=== PATIENT | male | born 1970 | race Caucasian/White ===

== ENCOUNTER 2019-04-18 17:08 | Inpatient (IN) | payer OTHER ==
[~2019-04-18 17:08] MED LIST: Iopamidol 370 76% 100 ML VIAL ONE
[2019-04-18 18:37] LABS: #Basophils 0.1 thou/uL (0.0-0.2); #Lymphocytes 1.2 thou/uL (1.20-3.40); #Monocytes 0.6 thou/uL (0.11-0.59); #Neutrophils 8.4 thou/uL (1.40-6.50); %Basophils 0.7 % (0.0-1.0); %Eosinophils 0.1 % (0.0-10.0); %Monocytes 5.7 % (0.0-10.0); %Neutrophils 81.5 % (42.0-75.0); Hemoglobin 13.6 g/dL (14.0-18.0); Mean Corpuscular HGB CONC 35.4 g/dL (32.0-36.0); Mean Corpuscular Hemoglobin 31.7 pg (27.0-31.0); Mean Corpuscular Volume 89.6 fL (78.0-98.0); Mean Platelet Volume 5.8 fL (7.4-10.4); Platelet Count 190 thou/uL (130-400); RBC Distribution Width 13.1 % (11.5-14.5); White Blood Cell (WBC) Count 10.3 thou/uL (4.8-10.8)
[2019-04-18 18:48] LABS: ALT (SGPT) 12 U/L (8-55); AST (SGOT) 15 U/L (5-34); Albumin 3.7 g/dL (3.5-5.0); Alkaline Phosphatase 62 U/L (40-150); Anion Gap 13 mmol/L (10-20); BUN (Urea Nitrogen) 17 mg/dL (8.9-20.6); Bilirubin, Total 2.1 mg/dL (0.2-1.2); Calc. Creatinine Clearance 0 mL/min (70-130); Calcium 8.5 mg/dL (7.8-10.44); Carbon Dioxide 25 mmol/L (22-29); Chloride 103 mmol/L (98-107); Estimated GFR-MDRD 61; Glucose 106 mg/dL (70-105); Lipase 13 U/L (8-78); Potassium 3.4 mmol/L (3.5-5.1); Protein, Total 6.7 g/dL (6.0-8.3); Sodium 138 mmol/L (136-145)
[2019-04-18 19:07] LABS: CKMB 1.3 ng/mL (0-6.6)
[2019-04-18] MEDS ORDERED: Piperacillin/Tazobactam 3.375 GM VIAL ONE (19:14)
[2019-04-18] MEDS ORDERED: Sodium Chloride 0.9% 100 ML ONE ×2 (19:14→19:53)
[2019-04-18] MEDS ORDERED: Aspirin Chewable 81 MG TAB ONE (19:14)
[2019-04-18] MEDS ORDERED: Piperacillin/Tazobactam 4.5 GM VIAL ONE (19:15)
--- NOTE | 2019-04-18 19:44 | CT ---
CT Aortic Dissection Protocol including the chest, abdomen and pelvis performed with intravenous cont rast enhancement and 3-D reconstructions HISTORY: Shortness of breath. Development of fever today. COMPARISON: None. FINDINGS: The lungs show some patchy pneumonitis type changes within the lingula and lower lobes. The re is no evidence of pleural effusion or pulmonary nodules. There is good pulmonary artery opacification obtained with no CT evidence for pulmonary embolus. Slightly prominent but small subcentimeter mediastinal lymph nodes are probably reactive in nature. The thoracic aorta is normal in caliber without evidence of dissection. CT angiogram of abdomen performed with intravenous contrast enhancement with 3-D reconstructions the liver shows no focal abnormalities it is 18 cm in length. The spleen measures 13.1 cm. Pancreas and gallbladder regions are unremarkable. Right and left adrenal glands and right and left kidneys are normal in appearance. No significant per iaortic or mesenteric adenopathy. Angiographic portion of the study shows a normal caliber aorta. The celiac and superior mesenteric ar teries are normal in appearance. There is a patent REANNA. There is no evidence of renal artery stenosis. There are no signs of dissection. CT angiogram of pelvis performed with intravenous contrast enhancement with 3-D reconstructions: The appendix is normal. There is no evidence of adenopathy or mass. No significant bony findings. IMPRESSION: 1. Patchy pneumonitis changes involving both lower lobes slightly more confluent infiltrate within th e lingula. 2. No evidence of aortic aneurysm or dissection. 3. Borderline spleen size.
[2019-04-19] MEDS ORDERED: Piperacillin/Tazobactam 4.5 GM in Sodium Chloride 0.9% 100 ML IVPB SCH (09:00)
[2019-04-19] MEDS ORDERED: HYDROcodone/Acetaminophen 5/325 mg Tablet PO PRN (09:49)
[2019-04-19] MEDS ORDERED: Loperamide HCl 2 MG CAP PO PRN (09:49)
[2019-04-19] MEDS ORDERED: Acetaminophen 325 MG TAB PO PRN (09:49)
[2019-04-19] MEDS ORDERED: Bisacodyl 10 MG SUPP PR PRN (09:49)
[2019-04-19] MEDS ORDERED: Senokot S 8.6-50 MG TAB PO PRN (09:49)
[2019-04-19] MEDS ORDERED: Ibuprofen 200 MG TAB PO PRN (09:49)
[2019-04-19] MEDS ORDERED: Cepastat Lozenges 1 LOZ PO PRN (09:49)
[2019-04-19] MEDS ORDERED: Loratadine 10 MG TAB PO PRN (09:49)
[2019-04-19] MEDS ORDERED: hydrALAZINE 20 MG/ML VIAL SLOW IVP PRN (09:49)
[2019-04-19] MEDS ORDERED: Sodium Chloride 0.65% Nasal 44 ML BOT EA NARE PRN (09:49)
[2019-04-19] MEDS ORDERED: Ondansetron ODT 4 MG TAB PO PRN (09:49)
[2019-04-19] MEDS ORDERED: Artificial Tears 18 DROP/0.9 ML EA EYE PRN (09:49)
[2019-04-19] MEDS ORDERED: Ondansetron PF 4 MG/2 ML Vial IVP PRN (09:49)
[2019-04-19] MEDS ORDERED: Diabetic Tussin 200 MG/10 ML UDCUP PO PRN (09:49)
[2019-04-19] MEDS ORDERED: Calcium Carbonate 500 MG ChewTAB PO PRN (09:49)
[2019-04-19 09:51] LABS: Troponin I 0.072 ng/mL (< 0.028)
[2019-04-19] MEDS ORDERED: Potassium Chloride 20 MEQ TAB PO SCH (10:00)
[2019-04-19] MEDS ORDERED: Valsartan 80 MG TAB PO SCH (10:00)
[2019-04-19] MEDS ORDERED: Hydrochlorothiazide 25 MG TAB PO SCH (10:00)
[2019-04-19 10:32] LABS: Anion Gap 13 mmol/L (10-20); BUN (Urea Nitrogen) 15 mg/dL (8.9-20.6); Calc. Creatinine Clearance 140 mL/min (70-130); Calcium 8.9 mg/dL (7.8-10.44); Carbon Dioxide 26 mmol/L (22-29); Chloride 102 mmol/L (98-107); Estimated GFR-MDRD 79; Glucose 84 mg/dL (70-105); Potassium 3.3 mmol/L (3.5-5.1); Sodium 138 mmol/L (136-145)
[2019-04-19 10:45] LABS: #Eosinphils 0.1 thou/uL (0.0-0.7); #Lymphocytes 1.3 thou/uL (1.20-3.40); #Monocytes 0.7 thou/uL (0.11-0.59); #Neutrophils 7.9 thou/uL (1.40-6.50); %Basophils 0.1 % (0.0-1.0); %Eosinophils 0.6 % (0.0-10.0); %Lymphocytes 13.3 % (21.0-51.0); %Monocytes 7.1 % (0.0-10.0); %Neutrophils 78.9 % (42.0-75.0); Hemoglobin 13.2 g/dL (14.0-18.0); Mean Corpuscular HGB CONC 33.5 g/dL (32.0-36.0); Mean Corpuscular Hemoglobin 31.7 pg (27.0-31.0); Mean Corpuscular Volume 94.7 fL (78.0-98.0); Mean Platelet Volume 7.3 fL (7.4-10.4); Platelet Count 177 thou/uL (130-400); RBC Distribution Width 13.8 % (11.5-14.5); Red Blood Cell (RBC) Count 4.17 mill/uL (4.70-6.10)
[2019-04-19] MEDS: cefTRIAXone\\ROCEPHIN 1 GM in Sodium Chloride 0.9% 100 ML IVPB SCH (10:55)
[2019-04-19 11:59] LABS: Bilirubin Negative (Negative); Blood, Urine Negative (Negative); Clarity CLEAR (Clear); Glucose, Urine (Dipstick) Negative (Negative); Leukocyte Negative (Negative); Nitrite Negative (Negative); Protein, Urine (Dipstick) 30 mg/dL (Neg-Trace); Specific Gravity, Urine 1.027 (1.002-1.036)
[2019-04-19 12:02] LABS: Bacteria/HPF None Seen HPF (None Seen); Hyaline Casts/LPF 0-3 HYALINE CAST LPF (0-3 Hyaline); Pathc Cast-AUWi Flag 0.13 (0-2.49); RBC/HPF 0-3 HPF (0-3); Squamous Epithelial None Seen HPF (0-3); WBC/HPF 0-3 HPF (0-3)
[2019-04-19 12:13] LABS: Legionella Urinary Ag Negative (Negative)
[2019-04-19 12:14] LABS: Strep pneumo Urine Ag NEGATIVE (NEGATIVE)
--- NOTE | 2019-04-19 14:31 | HP ---
PRIMARY CARE PHYSICIAN: Dr. Rosendo Gomez. REASON FOR ADMISSION: Sepsis and pneumonia. HISTORY OF PRESENT ILLNESS: A 48-year-old male with no significant medical history other than hypertension, dyslipidemia, and sleep apnea, who presented to emergency room at [facility] ER with complaint of fever, chills, and increasing shortness of breath. The patient was having symptoms for last three days, but his symptoms gotten worse yesterday. The patient's only recent history of travel to [place] about three weeks ago. He did not have any chronic lung problem. He had one time pneumonia in the past. He denies any recent upper respiratory infection. He has mild shortness of breath. He has mild sore throat. At home, he was having cough productive of a scant amount of sputum and yesterday, he was having blood-tinged sputum. He denies any pleurisy. He denies any recent sick exposure or flu-like illness. In the emergency room, the patient had initially chest x-ray and subsequently CT chest, which showed infiltration. The patient was diagnosed with pneumonia and he was meeting sepsis criteria in the emergency room. The patient was admitted to telemetry floor. REVIEW OF SYSTEMS: CONSTITUTIONAL: Negative for weight loss or gain, ability to conduct usual activities. SKIN: Negative for rash, itching. EYES: Negative for double vision, pain. ENT/MOUTH: Negative for nose bleeding, neck stiffness, pain, tenderness. CARDIOVASCULAR: Negative for palpitations, dyspnea on exertion, orthopnea. RESPIRATORY: Negative for shortness of breath, wheezing, cough, hemoptysis, fever or night sweats. GASTROINTESTINAL: Negative for poor appetite, abdominal pain, heartburn, nausea, vomiting, constipation, or diarrhea. GENITOURINARY: Negative for urgency, frequency, dysuria, nocturia. MUSCULOSKELETAL: Negative for pain, swelling. NEUROLOGIC/PSYCHIATRIC: Negative for anxiety, depression. ALLERGY/IMMUNOLOGIC: Negative for skin rash, bleeding tendency. Please see my HPI for pertinent positives and negatives. All other review of systems reviewed and negative except as mentioned in HPI. PAST MEDICAL HISTORY: Hypertension, dyslipidemia, and obstructive sleep apnea. PAST SURGICAL HISTORY: Reviewed and negative. PAST PSYCHIATRIC HISTORY: Reviewed and negative. SOCIAL HISTORY: The patient is former smoker. He currently denies any smoking. He drinks alcohol socially. He denies any other illicit drug abuse. He works in [place]. FAMILY HISTORY: No strong family history of premature coronary artery disease, stroke, or cancer. ALLERGIES: NO KNOWN DRUG ALLERGIES. CURRENT HOME MEDICATION: Valsartan with hydrochlorothiazide 320/25 one tablet p.o. daily. EMERGENCY ROOM COURSE: The patient was given vancomycin and Zosyn as well as IV fluid. PHYSICAL EXAMINATION: VITAL SIGNS: On arrival, blood pressure 142/92, pulse 112, respiratory rate 22, temperature 101.4, and saturation 94% on room air. Weight 110 kg. GENERAL: The patient is currently alert, awake, and in no obvious acute distress. HEENT: Head; normocephalic and atraumatic. Eyes; pupils are round and reactive to light. Extraocular muscles are intact. ENT; oropharynx within normal limits. Moist mucous membranes. No oral lesion. No pharyngeal erythema. No exudate. NECK: Supple. No JVD. No thyromegaly. No carotid bruit. No jugular venous distention. CARDIAC: Grossly clear to auscultation. Few coarse rales noted. CARDIAC: S1 and S2 regular. No murmur. No gallop. No rub. ABDOMEN: Soft. Bowel sounds are present. Nontender. Nondistended. No organomegaly. No mass. No suprapubic tenderness. BACK: Unremarkable. No CVA tenderness. EXTREMITIES: Upper extremities; passive movement of all joints are normal. Lower extremities, no edema. No calf tenderness. Good distal pulsation. SKIN: No skin rash. HEMATOLOGIC: No lymphadenopathy. NEUROLOGIC: Nonfocal examination. SIGNIFICANT LABORATORY DATA: EKG showing normal sinus rhythm, left atrial enlargement, LVH, and nonspecific ST-T changes. CT dissection protocol done in the emergency room showed patchy pneumonitis involving both lower lobe as well as in lingula. Chest x-ray done a couple of days ago, which did not show any acute process other than cardiomegaly. CBC; WBC 10.3, hemoglobin 13.6, and platelets are 190. BMP; sodium 138, potassium 3.4, chloride 103, carbon dioxide 25, BUN 17, creatinine 1.26, glucose 106, calcium 8.5. Lactic acid 1.1. LFT; bilirubin 2.1, AST 15, ALT 12, alkaline phosphatase 62, albumin 3.7, lipase 13, CK-MB 1.3. Troponin 0.071 and then 0.072. Urinalysis, normal. Urine Legionella pneumophila antigen and streptococcal pneumoniae antigen negative. Blood culture obtained in the emergency room. ASSESSMENT AND PLAN: 1. Sepsis due to bibasilar and lingular pneumonia. 2. Community-acquired bacterial pneumonia. 3. Demand ischemia of myocardium due to sepsis. 4. Hypokalemia due to hydrochlorothiazide. 5. Hypertension, uncontrolled. 6. Obesity with BMI of 31. 7. Obstructive sleep apnea. PLAN: 1. Admission to telemetry floor. Discontinue IV fluid after finishing current bag of IV fluid. Continue Rocephin 1 g q.24 hour and Levaquin 750 mg IV daily. Mucinex 600 mg twice daily. Resume the patient's home blood pressure medication. Replace potassium. 2. Deep venous thrombosis prophylaxis with SCD boots. GI prophylaxis with Pepcid 20 mg p.o. b.i.d., symptomatic treatment with DuoNeb and Mucinex as needed. CODE STATUS: The patient is full code. DISPOSITION PLAN: Based on clinical course, we are expecting the patient's stay in hospital for more than 2 midnights. Plan of care discussed with the patient in detail. Job ID: [id number]
[2019-04-19] MEDS ORDERED: Amlodipine 5 MG TAB PO SCH (18:15)
[2019-04-19] MEDS: guaiFENesin ER 600 MG TAB PO SCH (21:17)
[2019-04-19] MEDS: Famotidine 20 MG TAB PO SCH (21:17)
[2019-04-19 21:28] LABS: Troponin I 0.042 ng/mL (< 0.028)
[2019-04-19] MEDS: Zolpidem Tartrate 5 MG TAB PO PRN (23:54)
[2019-04-20 06:34] LABS: #Eosinphils 0.1 thou/uL (0.0-0.7); #Lymphocytes 1.3 thou/uL (1.20-3.40); #Monocytes 0.6 thou/uL (0.11-0.59); #Neutrophils 7.4 thou/uL (1.40-6.50); %Basophils 0.4 % (0.0-1.0); %Eosinophils 0.8 % (0.0-10.0); %Lymphocytes 14.2 % (21.0-51.0); %Monocytes 6.5 % (0.0-10.0); %Neutrophils 78.1 % (42.0-75.0); Mean Corpuscular HGB CONC 33.7 g/dL (32.0-36.0); Mean Corpuscular Hemoglobin 31.3 pg (27.0-31.0); Mean Platelet Volume 6.8 fL (7.4-10.4); Platelet Count 220 thou/uL (130-400); RBC Distribution Width 13.5 % (11.5-14.5); Red Blood Cell (RBC) Count 4.46 mill/uL (4.70-6.10); White Blood Cell (WBC) Count 9.5 thou/uL (4.8-10.8)
[2019-04-20 06:51] LABS: ALT (SGPT) 9 U/L (8-55); AST (SGOT) 16 U/L (5-34); Albumin 3.7 g/dL (3.5-5.0); Alkaline Phosphatase 72 U/L (40-150); Anion Gap 17 mmol/L (10-20); BUN (Urea Nitrogen) 12 mg/dL (8.9-20.6); Bilirubin, Total 1.6 mg/dL (0.2-1.2); Calc. Creatinine Clearance 149 mL/min (70-130); Carbon Dioxide 21 mmol/L (22-29); Chloride 99 mmol/L (98-107); Estimated GFR-MDRD 85; Globulin 3.4 g/dL (2.4-3.5); Glucose 104 mg/dL (70-105); Potassium 3.5 mmol/L (3.5-5.1); Protein, Total 7.1 g/dL (6.0-8.3); Sodium 133 mmol/L (136-145)
[2019-04-20] MEDS: Potassium Chloride 20 MEQ TAB PO SCH ×2 (08:08→16:44)
[2019-04-20] MEDS: Famotidine 20 MG TAB PO SCH ×2 (08:09→21:25)
[2019-04-20] MEDS: guaiFENesin ER 600 MG TAB PO SCH ×2 (08:09→21:25)
[2019-04-20] MEDS: Hydrochlorothiazide 25 MG TAB PO SCH (08:09)
[2019-04-20] MEDS: Valsartan 80 MG TAB PO SCH (08:09)
[2019-04-20] MEDS ORDERED: Amlodipine 5 MG TAB PO SCH (09:00)
--- NOTE | 2019-04-20 11:52 | PDOC.PN ---
- Subjective Encounter Start Date: 04/20/19 Encounter Start Time: 07:30 -: old records requested/rev Patient seen and examined. No new complaints. No overnight events he feels much better, slept well, no fever, less cough - Objective Resuscitation Status - Order Detail: 04/19/19 09:45 Resuscitation Status Routine Resuscitation Status: FULL: Full Resuscitation MAR Reviewed: Yes Vital Signs & Weight: Vital Signs (12 hours) Temp Pulse Resp BP BP Pulse Ox 04/20/19 08:09 97 04/20/19 08:05 96 04/20/19 08:00 98.5 F 97 18 159/107 H 96 04/20/19 03:00 98.0 F 96 16 157/98 H 96 Weight Weight 236 lb 4.8 oz I&O: 04/19/19 04/20/19 04/21/19 06:59 06:59 06:59 Intake Total 2039 450 Balance 2039 450 Result Diagrams: 04/20/19 05:27 04/20/19 05:27 EKG Reviewed by me: Yes Phys Exam - Physical Examination Constitutional: NAD HEENT: PERRLA, moist MMs, sclera anicteric Neck: no JVD, supple Respiratory: no wheezing, no rales, no rhonchi Cardiovascular: RRR, no significant murmur, no rub Gastrointestinal: soft, non-tender, no distention, positive bowel sounds Musculoskeletal: no edema, pulses present Neurological: non-focal, normal sensation, moves all 4 limbs Lymphatic: no nodes Psychiatric: normal affect, A&O x 3 Skin: no rash, normal turgor Dx/Plan (1) Sepsis Code(s): A41.9 - SEPSIS, UNSPECIFIED ORGANISM Status: Acute (2) Demand ischemia Code(s): I24.8 - OTHER FORMS OF ACUTE ISCHEMIC HEART DISEASE Status: Acute (3) Community acquired bacterial pneumonia Code(s): J15.9 - UNSPECIFIED BACTERIAL PNEUMONIA Status: Acute (4) Obesity (BMI 30.0-34.9) Code(s): E66.9 - OBESITY, UNSPECIFIED Status: Chronic (5) Hypertension Code(s): I10 - ESSENTIAL (PRIMARY) HYPERTENSION Status: Acute (6) YASIR on CPAP Code(s): G47.33 - OBSTRUCTIVE SLEEP APNEA (ADULT) (PEDIATRIC); Z99.89 - DEPENDENCE ON OTHER ENABLING MACHINES AND DEVICES Status: Acute (7) Hypokalemia Code(s): E87.6 - HYPOKALEMIA Status: Acute - Plan cont current plan of care, continue antibiotics * DC tele * transfer to medical * continue rocephin and levaquin * medication reviewed as below * symptomatic treatment. Review of Systems - Review of Systems ENT: negative: Ear Pain, Ear Discharge, Nose Pain, Nose Discharge, Nose Congestion, Mouth Pain, Mouth Swelling, Throat Pain, Throat Swelling, Other Respiratory: Cough. negative: Dry, Shortness of Breath, Hemoptysis, SOB with Excertion, Pleuritic Pain, Sputum, Wheezing Cardiovascular: negative: chest pain, palpitations, orthopnea, paroxysmal nocturnal dyspnea, edema, light headedness, other Gastrointestinal: negative: Nausea, Vomiting, Abdominal Pain, Diarrhea, Constipation, Melena, Hematochezia, Other Genitourinary: negative: Dysuria, Frequency, Incontinence, Hematuria, Retention , Other Musculoskeletal: negative: Neck Pain, Shoulder Pain, Arm Pain, Back Pain, Hand Pain, Leg Pain, Foot Pain, Other Skin: negative: Rash, Lesions, Emerson, Bruising, Other - Medications/Allergies Allergies/Adverse Reactions: Allergies Allergy/AdvReac Type Severity Reaction Status Date / Time No Allergy Information Allergy Verified 04/19/19 11:06 Available Medications: Current Medications Acetaminophen (Tylenol) 650 mg PO Q4H PRN PRN Reason: Headache/Fever/Mild Pain (1-3) Hydrocodone Bitart/Acetaminophen (Harrison 5/325) 1 tab PO Q4H PRN PRN Reason: Moderate Pain (4-6) Albuterol/Ipratropium (Duoneb) 3 ml NEB [id number] PRN PRN Reason: SOB &/or Wheezing Amlodipine Besylate (Norvasc) 5 mg PO Q12HR [facility] Artificial Tears (Tears Naturale) 2 drop EA EYE PRN PRN PRN Reason: Dry Eyes Bisacodyl (Dulcolax) 10 mg [place] DAILYPRN PRN PRN Reason: Constipation Calcium Carbonate (Tums) 1,000 mg PO Q4H PRN PRN Reason: Heartburn or Indigestion Famotidine (Pepcid) 20 mg PO BID [facility] Last Admin: 04/20/19 08:09 Dose: 20 mg Guaifenesin (Mucinex) 600 mg PO Q12HR [facility] Last Admin: 04/20/19 08:09 Dose: 600 mg Guaifenesin (Robitussin Sf) 200 mg PO Q4H PRN PRN Reason: Cough Hydralazine HCl (Apresoline) 10 mg SLOW IVP Q4H PRN PRN Reason: SBP > 180 and HR < 70 Last Admin: 04/19/19 21:20 Dose: 10 mg Hydrochlorothiazide (Hydrochlorothiazide) 25 mg PO DAILY [facility] Last Admin: 04/20/19 08:09 Dose: 25 mg Ceftriaxone Sodium 1 gm/ (Sodium Chloride) 100 mls @ 200 mls/hr IVPB 1100 [facility] Last Admin: 04/19/19 10:55 Dose: 100 mls Levofloxacin 750 mg/ Device 150 mls @ 100 mls/hr IVPB 1200 [facility] Last Admin: 04/19/19 12:32 Dose: 150 mls Ibuprofen (Motrin) 400 mg PO Q4H PRN PRN Reason: Fever > 101 Loperamide HCl (Imodium) 2 mg PO PRN PRN PRN Reason: Diarrhea/Loose Stools Loratadine (Claritin) 10 mg PO DAILYPRN PRN PRN Reason: Sinus Symptoms Ondansetron HCl (Zofran Odt) 4 mg PO Q6H PRN PRN Reason: Nausea/Vomiting Ondansetron HCl (Zofran) 4 mg IVP Q6H PRN PRN Reason: Nausea/Vomiting Potassium Chloride (K-Dur) 40 meq PO BID-[facility] Stop: 04/20/19 17:01 Last Admin: 04/20/19 08:08 Dose: 40 meq Senna/Docusate Sodium (Senokot S) 2 tab PO BID PRN PRN Reason: Constipation Sodium Chloride ([place] Nasal [place] 0.65%) 0 ml EA NARE QIDPRN PRN PRN Reason: Nasal Congestion Sodium Chloride (Flush - Normal Saline) 10 ml IVF Q12HR [facility] Last Admin: 04/20/19 08:09 Dose: 10 ml Sodium Chloride (Flush - Normal Saline) 10 ml IVF PRN PRN PRN Reason: Saline Flush Throat Lozenges (Cepastat Lozenges) 1 farzana PO Q2H PRN PRN Reason: Sore Throat Valsartan (Diovan) 320 mg PO DAILY [facility] Last Admin: 04/20/19 08:09 Dose: 320 mg Zolpidem Tartrate (Ambien) 5 mg PO HSPRN PRN PRN Reason: Insomnia Last Admin: 04/19/19 23:54 Dose: 5 mg
[2019-04-20] MEDS: cefTRIAXone\\ROCEPHIN 1 GM in Sodium Chloride 0.9% 100 ML IVPB SCH (11:55)
[2019-04-20] MEDS ORDERED: Carvedilol 6.25 MG TAB PO SCH (17:15)
[2019-04-20] MEDS: Amlodipine 5 MG TAB PO SCH (21:25)
[2019-04-20] MEDS: Zolpidem Tartrate 5 MG TAB PO PRN (22:54)
[2019-04-21 05:22] VITALS: BMI 30.9
[2019-04-21] MEDS ORDERED: hydrALAZINE 20 MG/ML VIAL SLOW IVP PRN (05:30)
[2019-04-21] MEDS: Hydrochlorothiazide 25 MG TAB PO SCH (08:20)
[2019-04-21] MEDS: Famotidine 20 MG TAB PO SCH ×2 (08:20→20:39)
[2019-04-21] MEDS: Amlodipine 5 MG TAB PO SCH ×2 (08:20→20:39)
[2019-04-21] MEDS: Carvedilol 6.25 MG TAB PO SCH ×2 (08:20→16:47)
[2019-04-21] MEDS: guaiFENesin ER 600 MG TAB PO SCH ×2 (08:20→20:40)
[2019-04-21] MEDS: Valsartan 80 MG TAB PO SCH (08:27)
[2019-04-21] MEDS: cefTRIAXone\\ROCEPHIN 1 GM in Sodium Chloride 0.9% 100 ML IVPB SCH (10:43)
--- NOTE | 2019-04-21 11:33 | PDOC.PN ---
- Subjective Encounter Start Date: 04/21/19 Encounter Start Time: 09:15 Patient seen and examined. No new complaints. No overnight events - Objective Resuscitation Status - Order Detail: 04/19/19 09:45 Resuscitation Status Routine Resuscitation Status: FULL: Full Resuscitation MAR Reviewed: Yes Vital Signs & Weight: Vital Signs (12 hours) Temp Pulse Resp BP BP BP Pulse Ox 04/21/19 08:20 84 166/126 H 04/21/19 08:00 99.0 F 82 18 148/105 H 97 04/21/19 06:00 157/116 H 04/21/19 05:33 84 166/126 H 04/21/19 04:29 98.6 F 84 16 166/126 H 96 04/21/19 00:47 98.2 F 83 18 122/87 93 L Weight Weight 234 lb I&O: 04/20/19 04/21/19 04/22/19 06:59 06:59 06:59 Intake Total 2040 790 240 Balance 2040 790 240 Result Diagrams: 04/20/19 05:27 04/20/19 05:27 Phys Exam - Physical Examination Constitutional: NAD HEENT: PERRLA, moist MMs, sclera anicteric Neck: no JVD, supple Respiratory: no wheezing, no rales, no rhonchi Cardiovascular: RRR, no significant murmur, no rub Gastrointestinal: soft, non-tender, no distention, positive bowel sounds Musculoskeletal: no edema, pulses present Neurological: non-focal, normal sensation, moves all 4 limbs Lymphatic: no nodes Psychiatric: normal affect, A&O x 3 Skin: no rash, normal turgor Dx/Plan (1) Community acquired bacterial pneumonia Code(s): J15.9 - UNSPECIFIED BACTERIAL PNEUMONIA Status: Acute (2) Obesity (BMI 30.0-34.9) Code(s): E66.9 - OBESITY, UNSPECIFIED Status: Chronic (3) Hypertension Code(s): I10 - ESSENTIAL (PRIMARY) HYPERTENSION Status: Acute (4) YASIR on CPAP Code(s): G47.33 - OBSTRUCTIVE SLEEP APNEA (ADULT) (PEDIATRIC); Z99.89 - DEPENDENCE ON OTHER ENABLING MACHINES AND DEVICES Status: Acute (5) Demand ischemia Code(s): I24.8 - OTHER FORMS OF ACUTE ISCHEMIC HEART DISEASE Status: Acute (6) Sepsis Code(s): A41.9 - SEPSIS, UNSPECIFIED ORGANISM Status: Acute - Plan cont current plan of care, continue antibiotics * medication reviewed as below * symptomatic treatment * continue IV antibiotic today * will consider discharge tomorrow * stable otherwise, BP has improvement. Review of Systems - Review of Systems ENT: negative: Ear Pain, Ear Discharge, Nose Pain, Nose Discharge, Nose Congestion, Mouth Pain, Mouth Swelling, Throat Pain, Throat Swelling, Other Respiratory: negative: Cough, Dry, Shortness of Breath, Hemoptysis, SOB with Excertion, Pleuritic Pain, Sputum, Wheezing Cardiovascular: negative: chest pain, palpitations, orthopnea, paroxysmal nocturnal dyspnea, edema, light headedness, other Gastrointestinal: negative: Nausea, Vomiting, Abdominal Pain, Diarrhea, Constipation, Melena, Hematochezia, Other Genitourinary: negative: Dysuria, Frequency, Incontinence, Hematuria, Retention , Other Musculoskeletal: negative: Neck Pain, Shoulder Pain, Arm Pain, Back Pain, Hand Pain, Leg Pain, Foot Pain, Other Skin: negative: Rash, Lesions, Emerson, Bruising, Other - Medications/Allergies Allergies/Adverse Reactions: Allergies Allergy/AdvReac Type Severity Reaction Status Date / Time No Allergy Information Allergy Verified 04/19/19 11:06 Available Medications: Current Medications Acetaminophen (Tylenol) 650 mg PO Q4H PRN PRN Reason: Headache/Fever/Mild Pain (1-3) Hydrocodone Bitart/Acetaminophen (Louise 5/325) 1 tab PO Q4H PRN PRN Reason: Moderate Pain (4-6) Albuterol/Ipratropium (Duoneb) 3 ml NEB [id number] PRN PRN Reason: SOB &/or Wheezing Amlodipine Besylate (Norvasc) 5 mg PO Q12HR [facility] Last Admin: 04/21/19 08:20 Dose: 5 mg Artificial Tears (Tears Naturale) 2 drop EA EYE PRN PRN PRN Reason: Dry Eyes Bisacodyl (Dulcolax) 10 mg [place] DAILYPRN PRN PRN Reason: Constipation Calcium Carbonate (Tums) 1,000 mg PO Q4H PRN PRN Reason: Heartburn or Indigestion Carvedilol (Coreg) 6.25 mg PO BID-[facility] Last Admin: 04/21/19 08:20 Dose: 6.25 mg Famotidine (Pepcid) 20 mg PO BID [facility] Last Admin: 04/21/19 08:20 Dose: 20 mg Guaifenesin (Mucinex) 600 mg PO Q12HR [facility] Last Admin: 04/21/19 08:20 Dose: 600 mg Guaifenesin (Robitussin Sf) 200 mg PO Q4H PRN PRN Reason: Cough Hydralazine HCl (Apresoline) 10 mg SLOW IVP Q4H PRN PRN Reason: SBP > 180 and HR < 70 Last Admin: 04/19/19 21:20 Dose: 10 mg Hydralazine HCl (Apresoline) 10 mg SLOW IVP Q4H PRN PRN Reason: SBP>180 DBP>100 Last Admin: 04/21/19 05:33 Dose: 10 mg Hydrochlorothiazide (Hydrochlorothiazide) 25 mg PO DAILY [facility] Last Admin: 04/21/19 08:20 Dose: 25 mg Ceftriaxone Sodium 1 gm/ (Sodium Chloride) 100 mls @ 200 mls/hr IVPB 1100 [facility] Last Admin: 04/21/19 10:43 Dose: 100 mls Levofloxacin 750 mg/ Device 150 mls @ 100 mls/hr IVPB 1200 [facility] Last Admin: 04/20/19 12:44 Dose: 150 mls Ibuprofen (Motrin) 400 mg PO Q4H PRN PRN Reason: Fever > 101 Loperamide HCl (Imodium) 2 mg PO PRN PRN PRN Reason: Diarrhea/Loose Stools Loratadine (Claritin) 10 mg PO DAILYPRN PRN PRN Reason: Sinus Symptoms Ondansetron HCl (Zofran Odt) 4 mg PO Q6H PRN PRN Reason: Nausea/Vomiting Ondansetron HCl (Zofran) 4 mg IVP Q6H PRN PRN Reason: Nausea/Vomiting Senna/Docusate Sodium (Senokot S) 2 tab PO BID PRN PRN Reason: Constipation Sodium Chloride ([place] Nasal [place] 0.65%) 0 ml EA NARE QIDPRN PRN PRN Reason: Nasal Congestion Sodium Chloride (Flush - Normal Saline) 10 ml IVF Q12HR [facility] Last Admin: 04/21/19 08:20 Dose: 10 ml Sodium Chloride (Flush - Normal Saline) 10 ml IVF PRN PRN PRN Reason: Saline Flush Throat Lozenges (Cepastat Lozenges) 1 farzana PO Q2H PRN PRN Reason: Sore Throat Valsartan (Diovan) 320 mg PO DAILY [facility] Last Admin: 04/21/19 08:27 Dose: 320 mg Zolpidem Tartrate (Ambien) 5 mg PO HSPRN PRN PRN Reason: Insomnia Last Admin: 04/20/19 22:54 Dose: 5 mg
[2019-04-22] MEDS: Hydrochlorothiazide 25 MG TAB PO SCH (08:01)
[2019-04-22] MEDS: Amlodipine 5 MG TAB PO SCH (08:01)
[2019-04-22] MEDS: Famotidine 20 MG TAB PO SCH (08:02)
[2019-04-22] MEDS: guaiFENesin ER 600 MG TAB PO SCH (08:02)
[2019-04-22] MEDS: Carvedilol 6.25 MG TAB PO SCH (08:02)
[2019-04-22 08:13] VITALS: BP 127/91; TEMP 98.5
[2019-04-22] MEDS: Valsartan 80 MG TAB PO SCH (09:13)
[2019-04-22] MEDS: cefTRIAXone\\ROCEPHIN 1 GM in Sodium Chloride 0.9% 100 ML IVPB SCH (10:25)
--- NOTE | 2019-04-22 11:20 | PDOC.PN ---
- Subjective Encounter Start Date: 04/22/19 Encounter Start Time: 08:50 Patient seen and examined. No new complaints. No overnight events - Objective Resuscitation Status - Order Detail: 04/19/19 09:45 Resuscitation Status Routine Resuscitation Status: FULL: Full Resuscitation MAR Reviewed: Yes Vital Signs & Weight: Vital Signs (12 hours) Temp Pulse Resp BP Pulse Ox 04/22/19 08:01 76 04/22/19 08:00 98.5 F 84 18 127/91 H 93 L 04/21/19 23:36 76 18 124/86 Weight Weight 234 lb I&O: 04/21/19 04/22/19 04/23/19 06:59 06:59 06:59 Intake Total 790 1210 240 Balance 790 1210 240 Result Diagrams: 04/20/19 05:27 04/20/19 05:27 Phys Exam - Physical Examination Constitutional: NAD HEENT: PERRLA, moist MMs, sclera anicteric Neck: no JVD, supple Respiratory: no wheezing, no rales, no rhonchi Cardiovascular: RRR, no significant murmur, no rub Gastrointestinal: soft, non-tender, no distention, positive bowel sounds Musculoskeletal: no edema, pulses present Neurological: non-focal, normal sensation, moves all 4 limbs Lymphatic: no nodes Psychiatric: normal affect, A&O x 3 Skin: no rash, normal turgor Dx/Plan (1) Community acquired bacterial pneumonia Code(s): J15.9 - UNSPECIFIED BACTERIAL PNEUMONIA Status: Acute (2) Obesity (BMI 30.0-34.9) Code(s): E66.9 - OBESITY, UNSPECIFIED Status: Chronic (3) Hypertension Code(s): I10 - ESSENTIAL (PRIMARY) HYPERTENSION Status: Acute (4) YASIR on CPAP Code(s): G47.33 - OBSTRUCTIVE SLEEP APNEA (ADULT) (PEDIATRIC); Z99.89 - DEPENDENCE ON OTHER ENABLING MACHINES AND DEVICES Status: Acute (5) Demand ischemia Code(s): I24.8 - OTHER FORMS OF ACUTE ISCHEMIC HEART DISEASE Status: Acute (6) Sepsis Code(s): A41.9 - SEPSIS, UNSPECIFIED ORGANISM Status: Acute - Plan cont current plan of care, continue antibiotics * medication reviewed as below * symptomatic treatment * see discharge tamika. Review of Systems - Review of Systems ENT: negative: Ear Pain, Ear Discharge, Nose Pain, Nose Discharge, Nose Congestion, Mouth Pain, Mouth Swelling, Throat Pain, Throat Swelling, Other Respiratory: negative: Cough, Dry, Shortness of Breath, Hemoptysis, SOB with Excertion, Pleuritic Pain, Sputum, Wheezing Cardiovascular: negative: chest pain, palpitations, orthopnea, paroxysmal nocturnal dyspnea, edema, light headedness, other Gastrointestinal: negative: Nausea, Vomiting, Abdominal Pain, Diarrhea, Constipation, Melena, Hematochezia, Other Genitourinary: negative: Dysuria, Frequency, Incontinence, Hematuria, Retention , Other Musculoskeletal: negative: Neck Pain, Shoulder Pain, Arm Pain, Back Pain, Hand Pain, Leg Pain, Foot Pain, Other - Medications/Allergies Allergies/Adverse Reactions: Allergies Allergy/AdvReac Type Severity Reaction Status Date / Time No Allergy Information Allergy Verified 04/19/19 11:06 Available Medications: Current Medications Acetaminophen (Tylenol) 650 mg PO Q4H PRN PRN Reason: Headache/Fever/Mild Pain (1-3) Hydrocodone Bitart/Acetaminophen ([place] 5/325) 1 tab PO Q4H PRN PRN Reason: Moderate Pain (4-6) Albuterol/Ipratropium (Duoneb) 3 ml NEB C8AP-OA PRN PRN Reason: SOB &/or Wheezing Amlodipine Besylate (Norvasc) 5 mg PO Q12HR [facility] Last Admin: 04/22/19 08:01 Dose: 5 mg Artificial Tears (Tears Naturale) 2 drop EA EYE PRN PRN PRN Reason: Dry Eyes Bisacodyl (Dulcolax) [address] DAILYPRN PRN PRN Reason: Constipation Calcium Carbonate (Tums) 1,000 mg PO Q4H PRN PRN Reason: Heartburn or Indigestion Carvedilol (Coreg) 6.25 mg PO BID-[facility] Last Admin: 04/22/19 08:02 Dose: 6.25 mg Famotidine (Pepcid) 20 mg PO BID [facility] Last Admin: 04/22/19 08:02 Dose: 20 mg Guaifenesin (Mucinex) 600 mg PO Q12HR [facility] Last Admin: 04/22/19 08:02 Dose: 600 mg Guaifenesin (Robitussin Sf) 200 mg PO Q4H PRN PRN Reason: Cough Hydralazine HCl (Apresoline) 10 mg SLOW IVP Q4H PRN PRN Reason: SBP > 180 and HR < 70 Last Admin: 04/19/19 21:20 Dose: 10 mg Hydralazine HCl (Apresoline) 10 mg SLOW IVP Q4H PRN PRN Reason: SBP>180 DBP>100 Last Admin: 04/21/19 05:33 Dose: 10 mg Hydrochlorothiazide (Hydrochlorothiazide) 25 mg PO DAILY [facility] Last Admin: 04/22/19 08:01 Dose: 25 mg Ceftriaxone Sodium 1 gm/ (Sodium Chloride) 100 mls @ 200 mls/hr IVPB 1100 [facility] Last Admin: 04/22/19 10:25 Dose: 100 mls Levofloxacin 750 mg/ Device 150 mls @ 100 mls/hr IVPB 1200 [facility] Last Admin: 04/21/19 11:50 Dose: 150 mls Ibuprofen (Motrin) 400 mg PO Q4H PRN PRN Reason: Fever > 101 Loperamide HCl (Imodium) 2 mg PO PRN PRN PRN Reason: Diarrhea/Loose Stools Loratadine (Claritin) 10 mg PO DAILYPRN PRN PRN Reason: Sinus Symptoms Ondansetron HCl (Zofran Odt) 4 mg PO Q6H PRN PRN Reason: Nausea/Vomiting Ondansetron HCl (Zofran) 4 mg IVP Q6H PRN PRN Reason: Nausea/Vomiting Senna/Docusate Sodium (Senokot S) 2 tab PO BID PRN PRN Reason: Constipation Sodium Chloride ([place] 0.65%) 0 ml EA NARE QIDPRN PRN PRN Reason: Nasal Congestion Sodium Chloride (Flush - Normal Saline) 10 ml IVF Q12HR [facility] Last Admin: 04/22/19 08:02 Dose: 10 ml Sodium Chloride (Flush - Normal Saline) 10 ml IVF PRN PRN PRN Reason: Saline Flush Throat Lozenges (Cepastat Lozenges) 1 farzana PO Q2H PRN PRN Reason: Sore Throat Valsartan (Diovan) 320 mg PO DAILY [facility] Last Admin: 04/22/19 09:13 Dose: 320 mg Zolpidem Tartrate (Ambien) 5 mg PO HSPRN PRN PRN Reason: Insomnia Last Admin: 04/20/19 22:54 Dose: 5 mg
--- NOTE | 2019-04-22 12:20 | DIS ---
DATE OF ADMISSION: 04/18/2019 DATE OF DISCHARGE: 04/22/2019 PRIMARY CARE PHYSICIAN: Rosendo Gomez MD. DISCHARGE DISPOSITION: Home. PRIMARY DISCHARGE DIAGNOSES: Community-acquired bacterial pneumonia, sepsis due to pneumonia, demand ischemia due to pneumonia, hypertension, uncontrolled; hypokalemia, replaced. SECONDARY DISCHARGE DIAGNOSES: Obesity, hypertension, obstructive sleep apnea, on CPAP. PRIMARY PROCEDURE/OPERATION: None. RADIOLOGICAL INVESTIGATION: Chest x-ray, CT dissection. SIGNIFICANT LABORATORY DATA: Hemoglobin 14.0, WBC 9.5, platelet 220. Sodium 133, potassium 3.5, BUN 12, creatinine 0.95, calcium 9.0. Troponin 0.042. Albumin 3.7. Urinalysis normal. Urine Legionella and streptococcal pneumoniae antigen negative. Blood culture negative. DISCHARGE MEDICATION: 1. Losartan with hydrochlorothiazide one tablet daily. 2. Amlodipine 5 mg twice daily. 3. Mucinex 600 mg twice daily for 5 days. 4. Levaquin 750 mg p.o. daily for 5 days. 5. Coreg 6.25 mg b.i.d. CONTRAINDICATION: None. CODE STATUS: Full code. INPATIENT BUSINESS CENTER REPRESENTATIVE: None. ALLERGIES: NO KNOWN DRUG ALLERGIES. DISCHARGE PLAN: Posthospital, the patient will follow up with primary care physician in one week. HOSPITAL COURSE: A 48-year-old male with above-mentioned medical problem, who was admitted by me. Please see my HPI for further details. The patient was having cough, shortness of breath, fever. He was having sepsis criteria. He was having demand ischemia from pneumonia and he was having sepsis with pneumonia. He was treated with Rocephin and Levaquin while in hospital. On discharge, we changed to p.o. levofloxacin. During this admission, we noted his blood pressure was out of control and that is why we have to add amlodipine and Coreg for his better blood pressure control. Rest of medication will be continued as per previous. On discharge, we changed to p.o. Levaquin. All new medication prescriptions given to him. I have seen and examined the patient at bedside today. He remained hemodynamically stable, afebrile, tolerating p.o. well and ambulatory on room air. The patient is medically stable for discharge today. Please see my progress note from today for further detail. Job ID: [id number]
== END 2019-04-22 12:11 | disposition home or self-care (01) | DRG 871 ==
LOC: SCSER 17:08 → 2NO 20:08 → T4-A 04-20 22:16
PROVIDERS: ADMIT Hospitalist; ATTEND Hospitalist
DX: A41.9 Sepsis, unspecified organism (principal); J15.9 Unspecified bacterial pneumonia; I24.8 Other forms of acute ischemic heart disease; I10 Essential (primary) hypertension; E78.5 Hyperlipidemia, unspecified; G47.33 Obstructive sleep apnea (adult) (pediatric); E87.6 Hypokalemia; T50.2X5A Adverse effect of carbonic-anhydrase inhibitors, benzothiadiazides and other diuretics, initial encounter; E66.9 Obesity, unspecified; Z87.891 Personal history of nicotine dependence; Z68.31 Body mass index [BMI] 31.0-31.9, adult
CPT/HCPCS: 36415; 71275; 80048; 80053; 81001; 82553; 83605; 83690; 84484; 85025; 87040; 87899; 93005; J0360; J0696; J1956; J2543; J3370; J3490; Q9967